=== PATIENT | male | born 1985 | race Caucasian/White ===

== ENCOUNTER 2016-05-15 13:46 | Emergency (ER) | payer MEDICAID ==
[~2016-05-15] VITALS: Ht 180.3 cm; Wt 82.0 kg
[~2016-05-15 13:46] MED LIST: LORA1TAB PO
[2016-05-15 13:55] VITALS: Ht 180.3 cm; Wt 82.0 kg
[2016-05-15] MEDS ORDERED: LIDOCAINE 1% (MDV) 20 ML INJ SC ONE ×2 (15:00)
[2016-05-15] MEDS ORDERED: CEFTRIAXONE 1 GM INJ IM ONE (15:00)
[2016-05-15] MEDS ORDERED: BACTDS PO (15:41)
[2016-05-15] MEDS ORDERED: CEPH-443 PO (15:41)
--- NOTE | 2016-05-15 16:21 | ERD ---
DATE OF SERVICE: HISTORY OF PRESENT ILLNESS: The patient is a 30-year-old male coming in complaining of an abscess t o his right forearm. The patient injects crystal meth. He states it has been there for the last 3 days, it has gotten larger. He has had no fevers. He took Advil last night. He has never had one of these before. Last tetanus was 3 years ago, right hand dominant. PAST MEDICAL HISTORY: Denies medical problems. ALLERGIES: PENICILLIN. MEDICAL HISTORY: Hypertension. HOSPITALIZATIONS: Denies. SOCIAL HISTORY: Smokes marijuana. Does IV crystal meth. REVIEW OF SYSTEMS: A 12-point review of systems was done. Refer to HPI for positives, all other sy stems negative. PHYSICAL EXAMINATION VITAL SIGNS: Temperature is 98.2, pulse is 116, blood pressure is 167/72, respiratory 18, O2 satura tion 98% on room air. Pain intensity 6/10. GENERAL: The patient is well-appearing, well-nourished, no acute distress. HEENT: Atraumatic. Conjunctivae are pink. Pupils equal, round, and reactive to light. There is no s cleral icterus. Tympanic membranes clear bilaterally. Oropharynx clear. No nystagmus or photophobia . CHEST: Clear to auscultation bilaterally. There are no rales, wheezes or rhonchi. HEART: Regular rate and rhythm. No murmurs, clicks, rubs or gallops. No S3 or S4. ABDOMEN: Soft, nontender and nondistended. Good bowel sounds. No rebound or guarding. No gross wendy tonitis. No gross organomegaly or masses. No Sands sign or McBurney point tenderness. SKIN: There is an erythematous site noted on the right forearm with no lymphatic streaking. EXTREM ITIES: Compartments are soft. Pulses intact to the distal extremity. EMERGENCY ROOM COURSE: Site was cleaned. Approximately 4 mL of plain lidocaine was injected into t he site. A small 1 cm incision was made and copious amounts of purulent discharge was extracted. S ite was re-cleaned and a dressing was applied. Patient received a Rocephin shot in the ER IM. DIAGNOSIS: Abscess. MEDICAL DECISION MAKING: I have low suspicion for lymphatic infection, low suspicion for deep track ing infection. Patient was recommended to return in 2 days. I have low suspicion for sepsis. DISCHARGE: The patient is discharged stable. Patient given prescription for Bactrim and Keflex and told to follow up with primary care within 1 to 2 days for reevaluation. Patient was told if sympt oms progress or worsen to return to the ER. All other questions answered at time of discharge. Dis charge summary given at the time of departure. Patient understood and complied with plan. Dictated By: KAREL BUNCH PA for VALERIO KABA/REGAN Conf#: [id number] DID#: [id number]
== END 2016-05-15 16:18 | disposition home or self-care (01) ==
LOC: FTE 13:46
DX: L02.413 Cutaneous abscess of right upper limb (principal); I10 Essential (primary) hypertension; F17.210 Nicotine dependence, cigarettes, uncomplicated
CPT/HCPCS: 10060; 96372; J0696; Z7502; Z7610

== ENCOUNTER 2018-03-19 17:35 | Emergency (ER) | END 2018-03-19 22:02 | disposition home or self-care (01) ==

== ENCOUNTER 2018-03-20 15:45 | Emergency (ER) | END 2018-03-20 17:32 | disposition home or self-care (01) ==

== ENCOUNTER 2018-11-17 01:27 | Emergency (ER) | payer MEDICAID ==
[~2018-11-17] VITALS: Ht 180.3 cm; Wt 88.2 kg
[~2018-11-17 01:27] MED LIST changes: +BACTDS PO; +CEPH-443 PO; +CLIN300C10 PO; +SULF1TAB31 PO
[2018-11-17 01:30] VITALS: BP 158/84; PULSE 105; RESP 18; Ht 180.3 cm; Wt 88.2 kg
--- NOTE | 2018-11-17 04:14 | ERD ---
ER Documentation Chief Complaint Chief Complaint URINARY RETENTION X'S 2 DAYS HPI Patient is a 32 years old male with no known past medical history presenting to the clinic for multiple nontender bumps on the tip of his penis X 3 days. Patient denies dysuria, urinary frequency, urinary urgency, penile discharge, he maturia, fever, chills, night sweats, weight loss. Patient denies taking any OTC medication. ROS All systems reviewed and are negative except as per history of present illness. Medications Home Meds Active Scripts Clindamycin Hcl* (Clindamycin Hcl*) 300 Mg Capsule, 300 MG PO TID for 10 Days, CAP Prov:LEKKOS,APOSTOLOS A. DO 03/19/18 Sulfamethoxazole/Trimethoprim* (Bactrim Ds* Tablet) 1 Each Tablet, 1 TAB PO BID, #20 TAB Prov:LEKKOS,APOSTOLOS A. DO 03/19/18 Cephalexin* (Keflex*) 500 Mg Capsule, 500 MG PO QID for 7 Days, CAP Prov:ANNELIESE BUNCH PA-C 05/15/16 Sulfamethoxazole-Trimethoprim* (Bactrim* DS) 800-160 Mg Tab, 1 TAB PO BID for 7 Days, TAB Prov:ANNELIESE BUNCH PA-C 05/15/16 Lorazepam* (Lorazepam*) 1 Mg Tablet, 1 MG PO Q8 PRN for ANXIETY, #10 TAB Prov:NATHAN PERRIN 06/27/15 Allergies Allergies: Coded Allergies: Penicillins (Verified Allergy, Unknown, RASH, 06/27/15) PMhx/Soc Medical and Surgical Hx: pt denies Surgical Hx History of Surgery: No Anesthesia Reaction: No Hx Neurological Disorder: No Hx Respiratory Disorders: No Hx Cardiac Disorders: Yes (HTN) Hx Psychiatric Problems: No Hx Miscellaneous Medical Probl: No Hx Alcohol Use: No Hx Substance Use: Yes (marijuana, crystal meth) Hx Tobacco Use: Yes (1PACK/WEEK) Smoking Status: Current every day smoker FmHx Family History: No diabetes, No coronary disease, No other Physical Exam Vitals Vital Signs Date Temp Pulse Resp B/P (MAP) Pulse Ox O2 O2 Flow FiO2 Time Delivery Rate 11/17/18 97.8 105 18 158/84 97 01:30 (108) Physical Exam Const: No acute distress Head: Atraumatic Eyes: Normal Conjunctiva Resp: Clear to auscultation bilaterally Cardio: Regular rate and rhythm, no murmurs Abd: Soft, non tender, non distended. Normal bowel sounds Skin: No petechiae or rashes Neur: Awake and alert Psych: Normal Mood and Affect Male genital exam: Multiple cauliflower-like lesions on glans penis. No signs of canker, nodules, erythema, induration. No discharge produced. Procedures/MDM Patient was seen and evaluated for general lesion which is most consistent with genital warts. No further work-up required in ED as of now. Patient was advised to follow-up with infectious disease specialist for further evaluation for STI testing. Patient stable and ready for discharge. Patient will be discharged with Aldara cream. Departure Diagnosis: Primary Impression: Genital warts Condition: Stable Patient Instructions: Treating Genital Warts, Understanding Human Papillomavirus (HPV) and Genital Warts Referrals: [facility] Additional Instructions: Patient advised to return to the ED immediately for new or worsening symptoms. Patient advised to follow up with primary care provider in the next 24-48 hours. Patient verbalized understanding and agrees with treatment plan and course of action. If patient has no primary care they may follow up with [facility] [address] [place] [address] [id number] [facility] [address] [place] [address] or [facility] [address] [place] [address] ELOISA GOLDSTEIN PA-C Nov 17, 2018 04:14
[2018-11-17] MEDS ORDERED: IMIQ1CRE14 TOP (04:16)
== END 2018-11-17 04:24 | disposition home or self-care (01) ==
LOC: FTE 01:27
DX: A63.0 Anogenital (venereal) warts (principal); I10 Essential (primary) hypertension; F17.210 Nicotine dependence, cigarettes, uncomplicated